=== PATIENT | female | born 1960 | race Caucasian/White ===

== ENCOUNTER 2020-11-15 15:59 | Emergency (ER) | payer BC, MEDICAID ==
[~2020-11-15] VITALS: Ht 167.6 cm; Wt 58.0 kg
[2020-11-15] MEDS ORDERED: ACETAMINOPHEN 325MG TABLET PO ONE (16:30)
[2020-11-15 16:47] LABS: BASOPHILS % 0.6 % (0.0-2.0); EOSINOPHILS % 2.1 % (0.0-5.0); HEMATOCRIT. 37.2 % (36.0-48.0); HEMOGLOBIN. 12.7 g/dL (12.0-16.0); LYMPHOCYTES % 34.8 % (20.0-50.0); MEAN CORPUSCULAR HEMOGLOBIN 28.7 pg (28.0-32.0); MEAN CORPUSCULAR VOLUME 84.3 fL (81.0-99.0); MEAN PLATELET VOLUME 9.3 fl (7.4-10.4); NEUTROPHILS % 54.5 % (40.0-76.0); PLATELET 282 x1000/uL (130-400); RED BLOOD CELL COUNT 4.42 mill/uL (4.2-5.4); RED CELL DISTRIBUTION WIDTH 14.3 % (11.6-14.6)
[2020-11-15 16:53] LABS: CHLORIDE 110 mEq/L (98-107)
[2020-11-15 17:09] LABS: CLARITY URINE CLEAR (CLEAR); COLOR URINE DARK YELLOW (YELLOW); KETONES URINE NEGATIVE (NEGATIVE); LEUKOCYTE ESTERASE URINE NEGATIVE (NEGATIVE); NITRITE URINE NEGATIVE (NEGATIVE); OCCULT BLOOD URINE NEGATIVE (NEGATIVE); PROTEIN URINE NEGATIVE (NEGATIVE); SPECIFIC GRAVITY URINE 1.024 (1.005-1.030)
[2020-11-15] MEDS ORDERED: IBUPROFEN 600MG TABLET PO ONE (17:30)
[2020-11-15 18:07] VITALS: BP 126/70
== END 2020-11-15 18:50 | disposition home or self-care (01) ==
LOC: ER 15:59
DX: S39.012A Strain of muscle, fascia and tendon of lower back, initial encounter (principal); Y93.H2 Activity, gardening and landscaping; M25.552 Pain in left hip; M25.551 Pain in right hip; Y92.017 Garden or yard in single-family (private) house as the place of occurrence of the external cause; E11.9 Type 2 diabetes mellitus without complications; Z90.49 Acquired absence of other specified parts of digestive tract
CPT/HCPCS: 36415; 80053; 81003; 82962; 83605; 85025; 99283

== ENCOUNTER 2024-06-18 20:17 | Emergency (ER) | payer SELFPAY ==
[~2024-06-18] VITALS: Ht 160 cm; Wt 53.8 kg
[2024-06-18] MEDS: ALBUTEROL (0.083%) 2.5MG/3ML NEB HHN NR
[2024-06-18] MEDS: IPRATROPIUM BROMIDE (0.02%) 0.5MG/2.5ML NEB HHN NR
[2024-06-18 20:18] VITALS: O2SAT 98
[2024-06-18] MEDS: PREDNISONE 20MG TABLET PO NR (21:43)
[2024-06-18 21:48] LABS: BASOPHILS % 0.5 % (0.0-2.0); EOSINOPHILS % 0.2 % (0.0-5.0); HEMATOCRIT. 42.5 % (36.0-48.0); HEMOGLOBIN. 14.3 g/dL (12.0-16.0); LYMPHOCYTES % 12.5 % (20.0-50.0); MEAN CORPUSCULAR HEMOGLOBIN 28.4 pg (28.0-32.0); MEAN CORPUSCULAR HGB CONC 33.5 g/dL (31.0-37.0); MEAN CORPUSCULAR VOLUME 84.6 fL (81.0-99.0); MEAN PLATELET VOLUME 10.1 fl (7.4-10.4); MONOCYTES % 3.8 % (2.0-8.0); PLATELET 261 x1000/uL (130-400); RED BLOOD CELL COUNT 5.02 mill/uL (4.2-5.4); RED CELL DISTRIBUTION WIDTH 13.7 % (11.6-14.6); WHITE BLOOD COUNT 11.6 x1000/uL (4.5-11.0)
[2024-06-18 22:07] LABS: CHLORIDE 107 mEq/L (98-107); POTASSIUM 3.9 mEq/L (3.5-5.1); SODIUM 140 mEq/L (136-145)
[2024-06-18 22:08] LABS: CARBON DIOXIDE 24 mEq/L (21-32)
[2024-06-18 22:09] LABS: CALCIUM 10.5 mg/dL (8.7-10.4)
[2024-06-18 22:13] LABS: CREATININE 0.7 mg/dL (0.6-1.0); GLUCOSE 206 mg/dL (70-105)
[2024-06-18 22:14] LABS: UREA NITROGEN BLOOD 17 mg/dL (9-23)
[2024-06-18 22:15] LABS: ALANINE AMINOTRANSFERASE 21 IU/L (10-49); ALBUMIN 4.5 g/dL (3.2-4.8); ASPARTATE AMINOTRANSFERASE 21 IU/L (<34)
[2024-06-18 22:16] LABS: BILIRUBIN DIRECT 0.1 mg/dL (<=3.0); BILIRUBIN TOTAL 0.5 mg/dL (0.1-1.0); PROTEIN TOTAL 7.2 g/dL (6.0-8.3)
[2024-06-18 22:20] LABS: TROPONIN I HIGH SENSITIVITY < 4 ng/L (3.0-34)
[2024-06-19] VITALS: PULSE 81; RESP 18
[2024-06-19] MEDS ORDERED: P20 MT (01:33)
[2024-06-19 02:39] VITALS: BP 146/84; PULSE 92; RESP 17; TEMP 36.78072; O2SAT 99
== END 2024-06-19 02:42 | disposition home or self-care (01) ==
LOC: ER 20:17
DX: J45.901 Unspecified asthma with (acute) exacerbation (principal); E11.9 Type 2 diabetes mellitus without complications; I10 Essential (primary) hypertension; Z98.51 Tubal ligation status; Z90.49 Acquired absence of other specified parts of digestive tract
CPT/HCPCS: 80076; 80048; 83690; 85025; 84484; 36415; 71045; 93005; 99291; 94640; J7512; Z7610 ×3